=== PATIENT | female | born 1955 | race Two or more races ===

== ENCOUNTER → 2017-08-21 | Outpatient (CLI) | payer OTHER ==
[~2017-08-21] VITALS: Ht 152.4 cm; Wt 90.7 kg
[~2017-08-21] MED LIST: LEVAQUIN500 MG PO; SYNTHROID125 MCG; SYNTHROID125 MCG PO; ZOCOR20 MG PO
== END | disposition home or self-care (01) ==
LOC: PPHC 10:03
DX: Z00.00 Encounter for general adult medical examination without abnormal findings (principal); R07.89 Other chest pain; N64.4 Mastodynia

== ENCOUNTER 2017-08-23 08:49 | Outpatient (CLI) | payer OTHER | END 2017-08-23 17:00 | disposition home or self-care (01) | LOC: MAMO-SONO 08:49 | DX: Z80.9 Family history of malignant neoplasm, unspecified (principal); Z00.00 Encounter for general adult medical examination without abnormal findings; Z12.31 Encounter for screening mammogram for malignant neoplasm of breast ==

== ENCOUNTER → 2017-08-23 | Outpatient (CLI) | payer OTHER | END | disposition home or self-care (01) | LOC: LAB 07:12 | DX: Z00.00 Encounter for general adult medical examination without abnormal findings (principal) ==

== ENCOUNTER → 2017-08-23 | Outpatient (CLI) | payer OTHER | END | disposition home or self-care (01) | LOC: RAD 07:26 | DX: N64.4 Mastodynia (principal) ==

== ENCOUNTER → 2017-09-19 | Outpatient (CLI) | payer OTHER ==
[~2017-09-19] VITALS: Ht 152.4 cm; Wt 90.7 kg
== END | disposition home or self-care (01) ==
LOC: PPHC 09:56
DX: E03.8 Other specified hypothyroidism (principal)

== ENCOUNTER → 2017-10-10 | Outpatient (CLI) | payer OTHER | END | disposition home or self-care (01) | LOC: NUCLEAR 13:32 | DX: M85.80 Other specified disorders of bone density and structure, unspecified site (principal) ==

== ENCOUNTER 2017-10-31 07:16 | Outpatient (CLI) | payer OTHER | END 2017-10-31 17:00 | disposition home or self-care (01) | LOC: TOM 07:16 | DX: K59.00 Constipation, unspecified (principal); Z80.0 Family history of malignant neoplasm of digestive organs ==